=== PATIENT | female | born 1985 | race Caucasian/White ===

== ENCOUNTER → 2019-02-03 | Outpatient (CLI) | payer BC ==
[~2019-02-03] MED LIST: MOTRIN 600600 MG/TAB PO; PERCOCET 325 MG1 TA2 PO; PRENATAL1 TA7 PO
== END ==
LOC: SUN.DIA 10:24
DX: O24.419 Gestational diabetes mellitus in pregnancy, unspecified control (principal); Z3A.30 30 weeks gestation of pregnancy
CPT/HCPCS: G0108

== ENCOUNTER → 2019-02-09 | Outpatient (CLI) | payer BC | LOC: SUN.DIA 10:13 | DX: O24.419 Gestational diabetes mellitus in pregnancy, unspecified control (principal); Z3A.30 30 weeks gestation of pregnancy | CPT/HCPCS: G0108 ==

== ENCOUNTER → 2019-03-03 | Outpatient (CLI) | payer BC | LOC: SUN.DIA 09:36 | DX: O24.419 Gestational diabetes mellitus in pregnancy, unspecified control (principal); Z3A.33 33 weeks gestation of pregnancy | CPT/HCPCS: G0108 ==

== ENCOUNTER 2019-03-08 21:03 | Outpatient (CLI) | payer BC ==
[~2019-03-08] VITALS: Ht 157.5 cm; Wt 59.1 kg
[2019-03-08 21:30] VITALS: BP 99/58; PULSE 91; TEMP 97.9
--- NOTE | 2019-03-08 21:30 | NUR ---
2109- Patient ambulatory to LDR-2 with er tech from ED. Patient into restroom to change into gown. 2114- EFM and TOCO on and tracing. Patient has complaints of abdominal cramping since 1899 this evening every 2-10 minutes. Patient has right flank pain this AM and spoke to RN at [facility] and it has since resolved. Patient denies LOF, bleeding, or spotting. SVE Fingertip/-2. 2139- updated. OK to discharge home.
[2019-03-08 21:45] VITALS: BP 100/61; PULSE 85
--- NOTE | 2019-03-08 21:55 | NUR ---
2150- EFM and TOCO off. Discharge instructions explained to patient in depth. Encouraged and answered patients questions. Patient to follow up at [facility] 03/10/19 for OB appointment. 2155- Patient ambuluatory off unit with millstone cleaner.
== END 2019-03-08 21:55 | disposition home or self-care (01) ==
LOC: LDRO 21:03
DX: O26.893 Other specified pregnancy related conditions, third trimester (principal); R25.2 Cramp and spasm; Z3A.33 33 weeks gestation of pregnancy

== ENCOUNTER 2019-04-17 06:28 | Inpatient (IN) | payer BC ==
[~2019-04-17] VITALS: Ht 157.5 cm; Wt 58.6 kg
[2019-04-17] VITALS (30 sets, daily range): BP systolic 88–111; BP diastolic 44–66; PULSE 64–96; TEMP 98.1–98.5
--- NOTE | 2019-04-17 07:22 | NUR ---
0705 PATIENT HERE FOR INDUCTION OF LABOR. EFM ON FHT 130 BABY VERY ACTIVE. OCCASIONAL CONTRACTIONS BUT IRREGULAR . IV STARTED IN LEFT WRIST LR HUNG ASSESSMENT COMPLETED.
[2019-04-17 07:41] LABS: BASO % 0.6 % (0.0-2.0); EOS % 0.7 % (0-4.0); GRAN # 3.6 (1.4-6.5); GRAN % 66.5 % (42.2-75.2); HEMOGLOBIN 10.8 g/dl (12.5-16.0); LYMPH # 1.4 (1.2-3.4); LYMPH % 25.3 % (20.0-51.0); MEAN CELL VOLUME 90 fl (80.0-100.0); MEAN CORPUSCULAR HEMOGLOBIN 29 pg (27.0-31.0); MEAN CORPUSCULAR HGB CONC 32 g/dl (33.0-37.0); MEAN PLATELET VOLUME 9.9 fl (7.4-10.4); MONO # 0.4 (0.1-0.6); MONO % 6.5 % (1.7-9.3); PLATELET COUNT 228 K/mm3 (130-400); RED BLOOD COUNT 3.72 M/mm3 (4.10-5.30); REDCELL DISTRIBUTION WIDTH-CV 13.6 % (11.5-14.5)
[2019-04-17 07:56] LABS: HEMATOCRIT 33.5 % (37.0-47.0)
--- NOTE | 2019-04-17 10:48 | NUR ---
1015 DR RANGEL AT BEDSIDE,SVE /-1. AROM WITH AMNIOHOOK LARGE AMOUNT OF CLEAR FLUID. NO ODOR NOTED.
--- NOTE | 2019-04-17 12:38 | NUR ---
1130 PATIENT WANTS EPIDURAL. Panfilo KEE AT BEDSIDE FOR PLACEMENT. PATIENT SITS UP ON EDGE OF BED. TOLERATES PLACEMENT WELL. DENIES NEEDS. SEE Panfilo KEE SILK SCREEN REPAIRER NOTES PLEASE.
--- NOTE | 2019-04-17 12:41 | NUR ---
1155 FHT DECREASE TO 70'S. PATIENT REPOSITIONED. IVF BOLUS. SVE /0. DR RANGEL CALLED TO COME FOR DELIVERY NOW.
--- NOTE | 2019-04-17 12:42 | NUR ---
1205 DR RANGEL AT BEDSIDE. SVE /+1 patient will push with contraction. 1211 baby boy born at this time via by dr rangel. cord clamped and cut by and baby to moms chest. 1215 placenta delivered at this time. pitocin started at 333/hr fundus firm and bleeding wnl.
[2019-04-18 01:30] VITALS: BP 100/67; PULSE 84; TEMP 98.5
[2019-04-18 07:18] VITALS: BP 110/68; PULSE 78; TEMP 98.1
[2019-04-18] MEDS ORDERED: IBU800 M1 PO (08:34)
[2019-04-18 16:31] VITALS: BP 96/66; PULSE 83; TEMP 98.6
[2019-04-18 19:36] VITALS: BP 104/68; PULSE 78; TEMP 98.4
[2019-04-19 09:00] VITALS: BP 93/65; PULSE 85; TEMP 97.9
--- NOTE | 2019-04-19 09:55 | NUR ---
Initial visit; Mom thanked Physical Chemistry Professor for offering congratulations and God's blessings for the of her son. Physical Chemistry Professor thanked family for choosing [facility].
--- NOTE | 2019-04-19 13:37 | NUR ---
patient discharge instructions reviewed with her and . Verbalize understanding.
== END 2019-04-19 13:55 | disposition home or self-care (01) | DRG 807 ==
LOC: LDR 06:28 → OB 06:56 → LDR 06:56 → OB 15:25
PROVIDERS: ADMIT Student in an Organized Health Care Education/Training Program
PROC: 10E0XZZ Delivery of Products of Conception, External Approach (ICD-10-PCS; principal; 2019-04-17)
PROC: 0KQM0ZZ Repair Perineum Muscle, Open Approach (ICD-10-PCS; 2019-04-17)
PROC: 10907ZC Drainage of Amniotic Fluid, Therapeutic from Products of Conception, Via Natural or Artificial Opening (ICD-10-PCS; 2019-04-17)
PROC: 3E033VJ Introduction of Other Hormone into Peripheral Vein, Percutaneous Approach (ICD-10-PCS; 2019-04-17)
DX: O24.420 Gestational diabetes mellitus in childbirth, diet controlled (principal); Z37.0 Single live birth; O70.1 Second degree perineal laceration during delivery; Z3A.39 39 weeks gestation of pregnancy
CPT/HCPCS: J2590; J2795; J7120

== ENCOUNTER → 2023-01-14 | Outpatient (CLI) | payer OTHER ==
[~2023-01-14] MED LIST changes: +IBU800 M1 PO
== END ==
LOC: MC.RAD 17:00
DX: Z12.31 Encounter for screening mammogram for malignant neoplasm of breast (principal)